=== PATIENT | male | born 1990 | race African-American/Black ===

== ENCOUNTER 2017-02-10 14:13 | Emergency (ER) | payer SELFPAY ==
[~2017-02-10] VITALS: Ht 172.7 cm; Wt 79.4 kg
[2017-02-10] MEDS ORDERED: Lidocaine 1% 10mg/ml/Epi 0.005mg/ml 30ml vial INJ ONE (14:30)
[2017-02-10] MEDS ORDERED: Bacitracin Oint UD TOPIC ONE (14:30)
[2017-02-10] MEDS ORDERED: Bactrim DS (160mg/800mg) tab ORAL ONE (14:30)
--- NOTE | 2017-02-10 14:30 | Emergency Room Report ---
History of Present Illness General Chief Complaint: Skin Rash/Abscess Source: Patient Present Illness HPI Patient presents with swelling and tenderness in the right forehead area. Worsening for several days. Denies any fevers or chills. Last night in the shower he expressed some yellow pus from the area. He's had problems with ingrown hairs in his face. This is a different area. He claims the pain as a 10/10 at night. It's somewhat better at this time. He has not taken any medication. The pain is not radiating and is local. He says is worse when he tries to sleep on that side. His tetanus is up-to-date. No nausea vomiting diarrhea joint pain change in vision dental pain neck pain cough sore throat dysuria other skin rashes. Allergies: Uncoded Allergies: SHELLFISH (Allergy, Unknown, 02/10/17) Patient History Past Medical History: see triage record Social History: Reports: smoking Social History Narrative with mother Reviewed Nursing Documentation: PMH: Agreed, PSxH: Agreed Nursing Documentation-PMH Past Medical History: No Stated History Review of Systems All Other Systems: negative except mentioned in HPI Physical Exam Vital Signs Date Time Temp Pulse Resp B/P (MAP) Pulse Ox O2 Delivery O2 Flow Rate FiO2 02/10/17 14:17 97.9 105 16 114/70 99 Room Air Sp02 EP Interpretation: reviewed, normal General Appearance: well appearing, no apparent distress, other - strong smell of cannabis Head: normocephalic, atraumatic, other - lesion R forehead Eyes: bilateral eye PERRL, bilateral eye Scleral Injection ENT: hearing grossly normal, normal voice Neck: full range of motion, supple Respiratory: no respiratory distress, speaking full sentences Cardiovascular #1: normal peripheral pulses Cardiovascular #2: 2+ radial (R) Gastrointestinal: normal inspection Musculoskeletal: digits/nails normal, gait/station normal, normal range of motion Neurologic: alert, oriented x3, normal gait, grossly normal Psychiatric: anxious Skin: other - abscess R forehead, hypopigmented plaque R cheek with some scale Procedures Incision and Drainage Incision and Drainage : Consent: Verbal Blade Size: 11 I & D Procedure: betadine prep Wound Location: face Wound's Depth, Shape: superficial Wound Explored: contaminated - pus expressed Anesthesia: Lidocaine w/ Epi Splint Applied?: No Patient Tolerated: Well Complications: None Progress irrigated with NS. packing placed Medical Decision Making Diagnostic Impression: Primary Impression: Facial abscess Additional Impression: Tinea barbae ER Course The patient presents with an abscess needing incising on the forehead. In addition to that the lesion on his right cheek looks like it might be a combination of a superficial infection and also possibly tinea. He'll be treated with antibiotics topically also orally. Was treated for pain.. Anxiety over the procedure with improvement with discussion. I and D performed. Tolerated well. Patient stable for outpatient observation and treatment. Last Vital Signs Date Time Temp Pulse Resp B/P (MAP) Pulse Ox O2 Delivery O2 Flow Rate FiO2 02/10/17 15:31 97.9 16 114/70 99 Room Air 02/10/17 14:17 105 Status: improved Disposition: HOME, SELF-CARE Condition: Improved Scripts Trimethoprim/Sulfamethoxazole 160/800* (BACTRIM DS TABLET*) 1 Each Tablet 1 TAB ORAL Q12H, #14 TAB 0 Refills Prov: Karl Erwin M.D. 02/10/17 Tolnaftate (TOLNAFTATE) 45 Gm Powder 1 APPLIC TP BID, #45 GM Prov: Karl Erwin M.D. 02/10/17 Bacitracin (Bacitracin) 28.4 Gm Oint...g. 1 APPLIC TOPIC BID, #14 GM Prov: Karl Erwin M.D. 02/10/17 Ibuprofen* (MOTRIN*) 600 Mg Tablet 600 MG ORAL Q6H Y for For Pain, #16 TAB Prov: Karl Erwin M.D. 02/10/17 Karl Erwin M.D. Feb 10, 2017 14:30
[2017-02-10] MEDS ORDERED: TOLNAFTATE TP (15:04)
[2017-02-10] MEDS ORDERED: BACTRIM DS TAB1 EAC1 ORAL (15:04)
[2017-02-10] MEDS ORDERED: IBUPROFEN600 MG ORAL (15:04)
[2017-02-10] MEDS ORDERED: BACITRACIN15 GM TOPIC (15:04)
[2017-02-10 15:31] VITALS: BP 114/70
== END 2017-02-10 15:35 | disposition home or self-care (01) ==
LOC: EMR 14:30
DX: L02.01 Cutaneous abscess of face (principal); B35.0 Tinea barbae and tinea capitis; Z91.013 Allergy to seafood
CPT/HCPCS: 10060; 99284

== ENCOUNTER 2019-05-15 22:18 | Emergency (ER) | payer OTHER ==
[~2019-05-15] VITALS: Ht 172.7 cm; Wt 83.9 kg
[~2019-05-15 22:18] MED LIST: BACITRACIN15 GM TOPIC; BACTRIM DS TAB1 EAC1 ORAL; IBUPROFEN600 MG ORAL; TOLNAFTATE TP
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
[2019-05-15 22:34] VITALS: BP 154/109
[2019-05-15 22:53] VITALS: BP 154/109
--- NOTE | 2019-05-15 22:53 | NUR ---
ED Nurse Note: pt states that he does not want to wait anymore, does not want to sign AMA paperwork.
--- NOTE | 2019-05-17 03:31 | Emergency Room Report ---
History of Present Illness General Chief Complaint: Laceration Source: Patient Present Illness HPI Patient presented with lip laceration. Patient left without being evaluated. Allergies: Uncoded Allergies: SHELLFISH (Allergy, Unknown, 02/10/17) Nursing Documentation-[facility] Past Medical History: No Stated History Physical Exam Vital Signs Date Time Temp Pulse Resp B/P (MAP) Pulse Ox O2 Delivery O2 Flow Rate FiO2 05/15/19 22:26 97.5 93 17 154/109 (124) 97 Room Air Medical Decision Making Diagnostic Impression: Primary Impression: LWBS Additional Impression: Lip laceration Qualified Codes: S01.511A - Laceration without foreign body of lip, initial encounter ER Course Patient left without being evaluated by me. Last Vital Signs Date Time Temp Pulse Resp B/P (MAP) Pulse Ox O2 Delivery O2 Flow Rate FiO2 05/15/19 22:53 97.5 82 17 154/109 97 Room Air Status: unchanged Disposition: LEFT W/OUT BEING SEEN Condition: Unknown Referrals: JOE ESPOSITO PLN,REFERRI (PCP) Karl Erwin MD May 17, 2019 03:31
== END 2019-05-15 22:53 | disposition left against medical advice (07) ==
LOC: EMR 22:53
DX: S01.511A Laceration without foreign body of lip, initial encounter (principal); Z53.21 Procedure and treatment not carried out due to patient leaving prior to being seen by health care provider; X58.XXXA Exposure to other specified factors, initial encounter; Y93.9 Activity, unspecified; Y92.9 Unspecified place or not applicable; Z91.013 Allergy to seafood